=== PATIENT | female | born 1980 | race African-American/Black ===

== ENCOUNTER 2016-08-18 14:49 | Emergency (ER) | payer OTHER ==
--- NOTE | ~2016-08-18 | CR181 ---
[facility] A Service of [facility] & [facility] RADIOLOGY TEXT RESULTS PATIENT: MARILEE LOZA LOCATION: CFTX : 84 UNIT #: [id number] AGE: [address]: Sole Rubalcava APRN SEX: F ORDER DR: [id number] [facility] [address] [place], [place] [address] [id number] MR#: [id number] Acc #: [id number] NAME: MARILEE LOZA : 1980 SEX: F STUDY DATE/TIME: 08/18/2016 13:52 UNIT: [facility] ROOM: STUDY DESCRIPTION: CR Lumbar Spine 2 or 3 Views Attending Physician: Sole Rubalcava A.P.R.N. Referring Physician: Primary Care Physician No Ordering Physician: Ed Doctor [id number] [facility] Primary Care Physician: Primary Care Physician No MEDICAL IMAGING REPORT This report is preliminary unless electronic signature is present EXAM Lumbar spine 3 views HISTORY Low back pain since yesterday. No injury. FINDINGS 3 views of the lumbar spine demonstrate mild right lumbar curve. No fracture, disc space narrowing or lumbar subluxation. 5 lumbar-type vertebra. IMPRESSION No acute findings. Mild right lumbar curve. Dictated by... Vahid Mccullough M.D. THIS IS AN ELECTRONICALLY VERIFIED REPORT Vahid Mccullough M.D. at 08/18/2016 11:16 PM CADE/lashonda TD: 08/18/2016 16:06 JOB #: [id number] MEDICAL IMAGING REPORT Page 1 of 1 COPY
== END 2016-08-18 14:50 | disposition home or self-care (01) ==
LOC: CFTX 14:49
DX: S39.012A Strain of muscle, fascia and tendon of lower back, initial encounter (principal); F17.210 Nicotine dependence, cigarettes, uncomplicated; X58.XXXA Exposure to other specified factors, initial encounter; Y93.89 Activity, other specified
CPT/HCPCS: 72100; 96372; 99283; J1885